=== PATIENT | female | born 1930 | race Caucasian/White ===

== ENCOUNTER 2016-07-12 12:16 | Inpatient (IN) | payer MEDICARE, OTHER ==
[~2016-07-12] VITALS: Ht 160 cm; Wt 72.6 kg
[2016-07-12 13:00] LABS: RED BLOOD COUNT 3.87 M/UL (4.00-5.10); WHITE BLOOD COUNT 15.8 K/UL (4.5-11.0)
[2016-07-13 07:34] LABS: HEMOGLOBIN 11.1 gm/dl (12.3-15.3); RED BLOOD COUNT 3.55 M/UL (4.00-5.10); WHITE BLOOD COUNT 16.5 K/UL (4.5-11.0)
[2016-07-13 07:51] LABS: BUN/CREATININE RATIO 21 (0-10)
[2016-07-13] MEDS ORDERED: NEURONTIN 300300 MG PO (15:55)
[2016-07-13] MEDS ORDERED: POTASSIUM CHLO10 MEQ PO (15:55)
[2016-07-13] MEDS ORDERED: ESOMEPRAZOLE MA40 MG PO (15:56)
[2016-07-13] MEDS ORDERED: ELAVIL 50 MG TA50 MG PO (15:56)
[2016-07-13] MEDS ORDERED: RESTORIL15 MG PO (15:57)
[2016-07-13] MEDS ORDERED: HYDROCODON-ACE1 EAC2 PO (15:57)
[2016-07-14 06:19] LABS: HEMOGLOBIN 10.2 gm/dl (12.3-15.3); RED BLOOD COUNT 3.3 M/UL (4.00-5.10); WHITE BLOOD COUNT 12.8 K/UL (4.5-11.0)
[2016-07-14] MEDS ORDERED: LEVAQUIN750 MG PO (09:45)
== END 2016-07-14 10:47 | disposition home or self-care (01) | DRG 194 ==
LOC: ER1 12:16 → ZEROF 18:03 → M/S 18:03
PROVIDERS: Emergency Medicine; Family Medicine; ADMIT Emergency Medicine
DX: J18.9 Pneumonia, unspecified organism (principal); J98.11 Atelectasis; I10 Essential (primary) hypertension; D64.9 Anemia, unspecified; D69.6 Thrombocytopenia, unspecified; Z79.891 Long term (current) use of opiate analgesic; Z79.899 Other long term (current) drug therapy; E78.5 Hyperlipidemia, unspecified; Z82.49 Family history of ischemic heart disease and other diseases of the circulatory system
CPT/HCPCS: 36415; 71010; 80053; 81001; 82550; 82553; 83605; 83874; 83880; 84484; 85025; 85027; 85610; 85730; 87040; 93005; 96361; 96365; 96367; 96375; 99285; J0456; J0696; J1885; J7030; J7050; J7070; Q9963